=== PATIENT | male | born 1970 | race African-American/Black ===

== ENCOUNTER 2016-10-13 06:13 | Inpatient (IN) | payer MEDICAID ==
[~2016-10-13] VITALS: Ht 182.9 cm; Wt 117.7 kg
[~2016-10-13 06:13] MED LIST: ALPR0.5T PO; ALPR0.5T7 PO; ASPI-498 OR; ATE50T PO; DESV1TAB15 PO; GABA800T97 PO; GEMF600T3 PO; HAL1T PO; HALO0.5T9 PO; HYDR50CA2 PO; HYDR50TA69 PO; INSLANTI SC; ISOS20TA49 PO; ISOSPOW2 PO; LISI40TA PO
[2016-10-13] MEDS ORDERED: SODIUM CHLORIDE 0.9% 250 ML IV ONE (07:24)
[2016-10-13 07:25] LABS: Basophils # (auto) 0.1 uL; Basophils % (auto) 1.6 % (0.0-2.0); Eosinophils # (auto) 0.1 uL; Eosinophils % (auto) 1.1 % (0.0-7.0); Hematocrit 50.5 % (41.0-53.0); Hemoglobin 16.2 g/dL (13.5-17.5); Lymphocytes # (auto) 1.8 uL; Lymphocytes % (auto) 18.8 % (10.0-50.0); Mean Corpuscular Hemoglobin 28.7 pg (28.0-32.0); Mean Corpuscular Hgb Conc. 32.1 g/dL (32.0-36.0); Mean Corpuscular Volume 89.4 fL (80.0-100.0); Mean Platelet Volume 7.9 fL (7.4-10.4); Monocytes # (auto) 0.4 uL; Monocytes % (auto) 4.8 % (0.0-12.0); Neutrophils # (auto) 6.9 uL; Neutrophils % (auto) 73.7 % (37.0-80.0); Platelet Count (auto) 284 10^3/uL (140-450); Red Cell Distribution Width 13.5 % (11.6-16.0); White Blood Cell 9.3 10^3/uL (4.4-10.8)
[2016-10-13] MEDS ORDERED: LABETALOL HCL 5 MG/ML 4ML SYRINGE IV ONE (07:30)
[2016-10-13] MEDS ORDERED: LORazepam 2MG/ML-1ML VIAL IV ONE (07:30)
[2016-10-13 07:45] LABS: Albumin 3.7 g/dL (3.4-5.0); BUN/Creatinine Ratio 19.7; Bilirubin, Total 0.5 mg/dL (0.2-1.0); Calcium 9.3 mg/dL (8.5-10.1); Potassium 3.8 mmol/L (3.5-5.1); Total Protein 8.1 g/dL (6.4-8.2)
[2016-10-13] MEDS ORDERED: InsuLIN REG 1unit/0.01ml Soln (100units/ml) IV ONE (08:15)
[2016-10-13] MEDS ORDERED: SODIUM CHLORIDE 0.9% 1,000 ML IV ONE (08:15)
[2016-10-13] MEDS ORDERED: ONDANSETRON HCL 4 MG/2 ML VIAL IV ONE (08:30)
[2016-10-13] MEDS ORDERED: MORPHINE SULFATE 4 MG/ML SYRG IV ONE (08:30)
[2016-10-13 09:35] LABS: Urine Bilirubin Negative (Negative); Urine Color Yellow (Yellow); Urine Nitrite Negative (Negative); Urine RBC 3 /hpf (0 - 3); Urine Urobilinogen Normal (Negative); Urine pH 6.5 (5.0-8.0)
[2016-10-13] MEDS ORDERED: hydrALAZINE HCL 20 MG/ML VL IV ONE (09:45)
[2016-10-13 09:47] LABS: Urine Blood 1+ /uL (Negative); Urine Glucose 4+ mg/dL (Normal); Urine Ketone 1+ (Negative)
[2016-10-13] MEDS ORDERED: FAMOTIDINE (10MG/ML) 2ML VL IV SCH (10:15)
[2016-10-13] MEDS ORDERED: ACETAMINOPHEN 500 MG TAB PO PRN (10:15)
[2016-10-13] MEDS ORDERED: ALPRAZolam 0.5 MG TAB PO PRN (10:15)
[2016-10-13] MEDS ORDERED: MORPHINE SULF INJ 2 MG/ML SYRINGE 1ML IV PRN (10:15)
[2016-10-13] MEDS ORDERED: TEMAZEPAM 15 MG CAP PO PRN (10:15)
[2016-10-13] MEDS ORDERED: LORazepam 0.5 MG TAB PO PRN (10:15)
[2016-10-13] MEDS ORDERED: DEXTROSE (50%) 50ML SYRG IV PRN (10:15)
[2016-10-13] MEDS ORDERED: NITROGLYCERIN 0.4 MG SL TAB SL PRN (10:15)
[2016-10-13] MEDS: SODIUM CHLORIDE 0.9% 1,000 ML IV SCH ×2 (11:16→20:21)
[2016-10-13] MEDS: LISINOPRIL 20 MG TAB PO SCH (11:17)
[2016-10-13] MEDS: ASPirin-EC 81 mg tab PO SCH (11:17)
[2016-10-13] MEDS: GABAPENTIN 400 MG CAP PO SCH ×2 (11:17→22:01)
[2016-10-13] MEDS: ISOSORBIDE MONONITRATE 60 MG TAB PO SCH (11:18)
[2016-10-13] MEDS: GEMFIBROZIL 600 MG TAB PO SCH ×2 (11:18→22:00)
[2016-10-13] MEDS: ATENOLOL 50 MG TAB PO SCH ×2 (11:18→22:02)
[2016-10-13] MEDS: ACCU-CHEK COMFORT CURVE STRIP VI SCH ×3 (11:19→20:19)
[2016-10-13] MEDS: InsuLIN REG 1unit/0.01ml Soln (100units/ml) SC SCH ×3 (11:29→20:20)
[2016-10-13] MEDS ORDERED: HYDROXYZINE PAMOATE PO SCH (14:00)
[2016-10-13] MEDS: hydrOXYzine PAMOATE 25 MG CAP PO SCH ×2 (14:42→22:01)
[2016-10-13] MEDS: PROMETHAZINE HCL 25 MG/ML 1ML IV PRN (14:57)
[2016-10-13] MEDS: MORPHINE SULF INJ 2 MG/ML SYRINGE 1ML IV PRN ×2 (14:58→19:29)
[2016-10-13 16:55] VITALS: BP 103/67
[2016-10-13 20:00] VITALS: BP 123/71
[2016-10-13 21:38] VITALS: BP 123/71
[2016-10-13] MEDS: INSULIN DETEMIR(LEVEMIR) 1unit/0.01ml Soln (100units/ml) SC SCH (22:00)
[2016-10-13] MEDS ORDERED: HALOPERIDOL 0.5 MG PO SCH (22:00)
[2016-10-13] MEDS ORDERED: PATIENTS OWN MEDICATION (Gabapentin 800 MG) PO SCH ×2 (22:00)
[2016-10-13] MEDS ORDERED: INSULIN GLARGINE SC SCH (22:00)
[2016-10-13] MEDS: HALOPERIDOL 1 MG TAB PO SCH (22:02)
[2016-10-14] VITALS (7 sets, daily range): BP systolic 134–150; BP diastolic 70–79
[2016-10-14] MEDS: InsuLIN REG 1unit/0.01ml Soln (100units/ml) SC SCH ×6 (04:00→20:03)
[2016-10-14] MEDS: MORPHINE SULF INJ 2 MG/ML SYRINGE 1ML IV PRN ×2 (04:20→09:03)
[2016-10-14] MEDS: ACCU-CHEK COMFORT CURVE STRIP VI SCH ×7 (04:24→23:49)
[2016-10-14] MEDS: hydrOXYzine PAMOATE 25 MG CAP PO SCH ×3 (06:00→22:07)
[2016-10-14] MEDS: SODIUM CHLORIDE 0.9% 1,000 ML IV SCH (06:02)
[2016-10-14 06:59] LABS: Cholesterol 174 mg/dL (<200); HDL Cholesterol 31 mg/dL (40-59); LDL Cholesterol 121 mg/dL (<100); Triglycerides 189 mg/dL (<150)
[2016-10-14 07:32] LABS: Albumin 2.9 g/dL (3.4-5.0); Bilirubin, Total 0.5 mg/dL (0.2-1.0); Calcium 8.2 mg/dL (8.5-10.1); Potassium 3.3 mmol/L (3.5-5.1); Total Protein 6.5 g/dL (6.4-8.2)
[2016-10-14] MEDS: PROMETHAZINE HCL 25 MG/ML 1ML IV PRN (09:03)
[2016-10-14] MEDS: ASPirin-EC 81 mg tab PO SCH (09:41)
[2016-10-14] MEDS: GABAPENTIN 400 MG CAP PO SCH ×2 (09:42→22:04)
[2016-10-14] MEDS: GEMFIBROZIL 600 MG TAB PO SCH ×2 (09:43→22:05)
[2016-10-14] MEDS: ISOSORBIDE MONONITRATE 60 MG TAB PO SCH (09:43)
[2016-10-14] MEDS: PANTOPRAZOLE 40 MG TAB PO SCH (09:44)
[2016-10-14] MEDS: ATENOLOL 50 MG TAB PO SCH ×2 (09:44→22:05)
[2016-10-14] MEDS: LISINOPRIL 20 MG TAB PO SCH (09:45)
[2016-10-14] MEDS ORDERED: ISOSORBIDE 30 MG PO SCH (10:00)
[2016-10-14] MEDS: DESVENLAFAXINE 50 MG PO SCH (10:00)
[2016-10-14] MEDS ORDERED: PATIENTS OWN MEDICATION (Lisinopril 40 MG) PO SCH ×2 (10:00)
[2016-10-14] MEDS ORDERED: POTASSIUM CHL 20 Meq TABLET PO ONE (13:15)
[2016-10-14] MEDS: HYDROcodone-ACET 5/325MG TAB PO PRN (14:42)
[2016-10-14] MEDS: HALOPERIDOL 1 MG TAB PO SCH (22:04)
[2016-10-14] MEDS: INSULIN DETEMIR(LEVEMIR) 1unit/0.01ml Soln (100units/ml) SC SCH (22:13)
[2016-10-15] MEDS: InsuLIN REG 1unit/0.01ml Soln (100units/ml) SC SCH ×4 (00:12→11:59)
[2016-10-15] MEDS: ACCU-CHEK COMFORT CURVE STRIP VI SCH ×3 (03:39→11:59)
[2016-10-15 05:00] VITALS: BP 168/91
[2016-10-15] MEDS: PROMETHAZINE HCL 25 MG/ML 1ML IV PRN (05:12)
[2016-10-15] MEDS: HYDROcodone-ACET 5/325MG TAB PO PRN (05:13)
[2016-10-15] MEDS: hydrOXYzine PAMOATE 25 MG CAP PO SCH (06:03)
[2016-10-15 06:24] LABS: BUN/Creatinine Ratio 15.8; Calcium 8.2 mg/dL (8.5-10.1); Potassium 3.8 mmol/L (3.5-5.1)
[2016-10-15 08:00] VITALS: BP 131/72
[2016-10-15 09:00] VITALS: BP 131/72
[2016-10-15] MEDS: ASPirin-EC 81 mg tab PO SCH (09:46)
[2016-10-15] MEDS: LISINOPRIL 20 MG TAB PO SCH (09:46)
[2016-10-15] MEDS: ATENOLOL 50 MG TAB PO SCH (09:47)
[2016-10-15] MEDS: PANTOPRAZOLE 40 MG TAB PO SCH (09:48)
[2016-10-15] MEDS: ISOSORBIDE MONONITRATE 60 MG TAB PO SCH (09:50)
[2016-10-15] MEDS: GABAPENTIN 400 MG CAP PO SCH (09:51)
[2016-10-15] MEDS: GEMFIBROZIL 600 MG TAB PO SCH (09:53)
[2016-10-15] MEDS: DESVENLAFAXINE 50 MG PO SCH (09:54)
[2016-10-15] MEDS ORDERED: SODIUM CHLORIDE 0.9% 1,000 ML IV SCH (10:02)
[2016-10-15] MEDS ORDERED: PANT40T PO (11:15)
[2016-10-15 12:23] VITALS: BP 131/72
[2016-10-15 12:50] VITALS: BP 131/72
[2016-10-15 12:53] VITALS: BP 151/83
== END 2016-10-15 12:50 | disposition home or self-care (01) | DRG 723 ==
LOC: ER 06:15 → TELE 06:16 → TELE-E-ADS 13:38 → TELE-WESTW 15:58
PROVIDERS: ADMIT Internal Medicine; ATTEND Internal Medicine
DX: B34.9 Viral infection, unspecified (principal); N17.0 Acute kidney failure with tubular necrosis; E87.6 Hypokalemia; I10 Essential (primary) hypertension; E78.5 Hyperlipidemia, unspecified; E11.65 Type 2 diabetes mellitus with hyperglycemia; F41.9 Anxiety disorder, unspecified; K57.90 Diverticulosis of intestine, part unspecified, without perforation or abscess without bleeding; Z83.3 Family history of diabetes mellitus; Z88.8 Allergy status to other drugs, medicaments and biological substances; Z79.899 Other long term (current) drug therapy; Z79.82 Long term (current) use of aspirin; Z79.4 Long term (current) use of insulin
CPT/HCPCS: 36415; 71010; 74176; 80048; 80053; 80061; 81001; 82150; 82962; 83036; 83690; 83735; 85025; 93005; 96361; 96374; 96375; J1815; J2405; J3490

== ENCOUNTER 2016-12-31 09:13 | Observation (INO) | payer MEDICAID ==
[~2016-12-31] VITALS: Ht 182.9 cm; Wt 113.4 kg
[~2016-12-31 09:13] MED LIST changes: -ALPR0.5T PO; -HAL1T PO; -HYDR50TA69 PO; -ISOS20TA49 PO; +PANT40T PO
[2016-12-31] MEDS ORDERED: ONDANSETRON HCL 4 MG/2 ML VIAL ONE (09:31)
[2016-12-31 09:37] LABS: Basophils # (auto) 0 uL; Basophils % (auto) 0.4 % (0.0-2.0); Eosinophils # (auto) 0.2 uL; Eosinophils % (auto) 1.8 % (0.0-7.0); Hematocrit 48.2 % (41.0-53.0); Hemoglobin 16.2 g/dL (13.5-17.5); Lymphocytes # (auto) 2.1 uL; Lymphocytes % (auto) 22.2 % (10.0-50.0); Mean Corpuscular Hemoglobin 29.8 pg (28.0-32.0); Mean Corpuscular Hgb Conc. 33.6 g/dL (32.0-36.0); Mean Corpuscular Volume 88.8 fL (80.0-100.0); Mean Platelet Volume 7.7 fL (7.4-10.4); Monocytes # (auto) 0.5 uL; Monocytes % (auto) 5.5 % (0.0-12.0); Neutrophils # (auto) 6.6 uL; Neutrophils % (auto) 70.1 % (37.0-80.0); Platelet Count (auto) 278 10^3/uL (140-450); Red Cell Distribution Width 14.3 % (11.6-16.0); White Blood Cell 9.5 10^3/uL (4.4-10.8)
[2016-12-31] MEDS ORDERED: ONDANSETRON HCL 4 MG/2 ML VIAL IV ONE (10:00)
[2016-12-31 10:10] LABS: Albumin 4.1 g/dL (3.4-5.0); BUN/Creatinine Ratio 15.2; Calcium 9.2 mg/dL (8.5-10.1); Potassium 3.5 mmol/L (3.5-5.1)
[2016-12-31 10:12] LABS: Bilirubin, Total 0.6 mg/dL (0.2-1.0); Total Protein 8.2 g/dL (6.4-8.2)
[2016-12-31] MEDS ORDERED: SODIUM CHLORIDE 0.9% 1,000 ML IVB ONE ×2 (10:12→12:17)
[2016-12-31 10:14] LABS: Urine Bilirubin Negative (Negative); Urine Blood 1+ /uL (Negative); Urine Color Yellow (Yellow); Urine Glucose 4+ mg/dL (Normal); Urine Ketone 1+ (Negative); Urine Nitrite Negative (Negative); Urine RBC 8 /hpf (0 - 3); Urine Urobilinogen Normal (Negative)
[2016-12-31] MEDS ORDERED: NALBUPHINE HCL 10 MG/1ml INJECTION IV ONE (10:15)
[2016-12-31] MEDS ORDERED: LABETALOL HCL 5 MG/ML 4ML SYRINGE IV ONE (10:45)
[2016-12-31 11:10] LABS: Magnesium 2.3 mg/dL (1.6-2.6)
[2016-12-31] MEDS ORDERED: InsuLIN REG 1unit/0.01ml Soln (100units/ml) IV ONE ×2 (11:30→12:30)
[2016-12-31 14:50] VITALS: BP 160/91
[2016-12-31] MEDS ORDERED: ACETAMINOPHEN 500 MG TAB PO ONE (15:00)
== END 2016-12-31 15:17 | disposition home or self-care (01) | DRG 249 ==
LOC: ER 09:13 → OVERFLOW 10:14 → ER 15:17
PROVIDERS: ADMIT Emergency Medicine; ATTEND Emergency Medicine
DX: R11.2 Nausea with vomiting, unspecified (principal); E11.65 Type 2 diabetes mellitus with hyperglycemia; I10 Essential (primary) hypertension; K21.9 Gastro-esophageal reflux disease without esophagitis; F32.9 Major depressive disorder, single episode, unspecified; F41.9 Anxiety disorder, unspecified
CPT/HCPCS: 36415; 71020; 80053; 81001; 82962; 83690; 83735; 84443; 85025; 93005; 96374; 96375; 96376; 99285; G0378; J1815; J2300; J2405; J3490; J7030

== ENCOUNTER 2017-01-01 07:07 | Observation (INO) | payer MEDICAID ==
[~2017-01-01] VITALS: Ht 182.9 cm; Wt 113.4 kg
[2017-01-01] MEDS ORDERED: SODIUM CHLORIDE 0.9% 1,000 ML IV ONE ×3 (07:51→10:07)
[2017-01-01] MEDS ORDERED: ONDANSETRON HCL 4 MG/2 ML VIAL IV ONE ×2 (08:00→11:30)
[2017-01-01] MEDS ORDERED: NALBUPHINE HCL 10 MG/1ml INJECTION IV ONE ×2 (08:00→11:30)
[2017-01-01 08:03] LABS: Basophils # (auto) 0.1 uL; Basophils % (auto) 0.7 % (0.0-2.0); Eosinophils # (auto) 0.1 uL; Eosinophils % (auto) 1.2 % (0.0-7.0); Hemoglobin 14.9 g/dL (13.5-17.5); Lymphocytes % (auto) 18.4 % (10.0-50.0); Mean Corpuscular Hemoglobin 30.4 pg (28.0-32.0); Mean Corpuscular Hgb Conc. 33.9 g/dL (32.0-36.0); Mean Corpuscular Volume 89.7 fL (80.0-100.0); Mean Platelet Volume 7.6 fL (7.4-10.4); Monocytes # (auto) 0.5 uL; Monocytes % (auto) 4.2 % (0.0-12.0); Neutrophils # (auto) 8.4 uL; Neutrophils % (auto) 75.5 % (37.0-80.0); Platelet Count (auto) 289 10^3/uL (140-450); Red Cell Distribution Width 14.1 % (11.6-16.0); White Blood Cell 11.1 10^3/uL (4.4-10.8)
[2017-01-01 08:29] LABS: Urine Bilirubin Negative (Negative); Urine Blood TRACE /uL (Negative); Urine Nitrite Negative (Negative); Urine RBC 1 /hpf (0 - 3); Urine Urobilinogen Normal (Negative); Urine pH 7.5 (5.0-8.0)
[2017-01-01 08:33] LABS: Urine Glucose 4+ mg/dL (Normal); Urine Ketone 1+ (Negative)
[2017-01-01 08:34] LABS: Albumin 3.7 g/dL (3.4-5.0); Alkaline Phosphatase 98 U/L (45-117); Anion Gap 10 (5-15); Aspartate Aminotransferase 42 U/L (15-37); BUN/Creatinine Ratio 11.9; Bilirubin, Total 0.9 mg/dL (0.2-1.0); Blood Urea Nitrogen 13 mg/dL (7-18); Calcium 8.6 mg/dL (8.5-10.1); Carbon Dioxide 29 mmol/L (21-32); Chloride 97 mmol/L (98-107); GFR African American 95 mL/min; GFR Non-African American 78 mL/min; Glucose 304 mg/dL (74-106); Magnesium 1.9 mg/dL (1.6-2.6); Sodium 136 mmol/L (136-145); Total Protein 7.9 g/dL (6.4-8.2)
[2017-01-01 08:34] LABS: Urine Color Straw (Yellow)
[2017-01-01] MEDS ORDERED: InsuLIN REG 1unit/0.01ml Soln (100units/ml) IV ONE (09:00)
[2017-01-01] MEDS ORDERED: LABETALOL HCL 5 MG/ML 4ML SYRINGE IV ONE ×2 (09:15→11:30)
[2017-01-01] MEDS ORDERED: InsuLIN REG 1unit/0.01ml Soln (100units/ml) SC ONE (11:30)
[2017-01-01 12:00] VITALS: BP 161/94
== END 2017-01-01 12:50 | disposition home or self-care (01) | DRG 251 ==
LOC: ER 07:08 → OVERFLOW 07:59
PROVIDERS: ADMIT Emergency Medicine; ATTEND Emergency Medicine
DX: R10.13 Epigastric pain (principal); I10 Essential (primary) hypertension; R11.2 Nausea with vomiting, unspecified; E11.9 Type 2 diabetes mellitus without complications; K21.9 Gastro-esophageal reflux disease without esophagitis; F32.9 Major depressive disorder, single episode, unspecified; F41.9 Anxiety disorder, unspecified; E78.5 Hyperlipidemia, unspecified
CPT/HCPCS: 36415; 71010; 80053; 81001; 82962; 83690; 83735; 84484; 85025; 96361; 96372; 96374; 96375; 96376; 99285; G0378; J1815; J2300; J2405; J3490; J7030

== ENCOUNTER 2017-02-16 07:20 | Inpatient (IN) | payer MEDICAID ==
[~2017-02-16] VITALS: Ht 182.9 cm; Wt 113.1 kg
[2017-02-16] MEDS ORDERED: SODIUM CHLORIDE 0.9% 1,000 ML IVB ONE (08:04)
[2017-02-16] MEDS ORDERED: PANTOPRAZOLE SODIUM 40 MG/10 ML VIAL IV STA (08:04)
[2017-02-16] MEDS ORDERED: PROCHLORPERAZINE EDISYLATE 5 MG/ML 2ML VIAL IV ONE (08:15)
[2017-02-16] MEDS ORDERED: HYDROmorphone HCL 2 MG/ML VL IV ONE (08:15)
[2017-02-16 08:28] LABS: Basophils # (auto) 0 uL; CONDITION Y; Eosinophils # (auto) 0.1 uL; Eosinophils % (auto) 0.7 % (0.0-7.0); Hematocrit 49.4 % (41.0-53.0); Hemoglobin 16.9 g/dL (13.5-17.5); Lymphocytes # (auto) 1.1 uL; Lymphocytes % (auto) 10.1 % (10.0-50.0); Mean Corpuscular Hgb Conc. 34.3 g/dL (32.0-36.0); Mean Corpuscular Volume 90.5 fL (80.0-100.0); Mean Platelet Volume 7.5 fL (7.4-10.4); Monocytes # (auto) 0.1 uL; Monocytes % (auto) 0.8 % (0.0-12.0); Neutrophils # (auto) 9.3 uL; Neutrophils % (auto) 88.4 % (37.0-80.0); Platelet Count (auto) 299 10^3/uL (140-450); Red Cell Distribution Width 14.1 % (11.6-16.0); White Blood Cell 10.5 10^3/uL (4.4-10.8)
[2017-02-16 08:53] LABS: Albumin 4.2 g/dL (3.4-5.0); BUN/Creatinine Ratio 12.8; Bilirubin, Total 0.7 mg/dL (0.2-1.0); Calcium 9.4 mg/dL (8.5-10.1); Magnesium 2.3 mg/dL (1.6-2.6); Potassium 4.2 mmol/L (3.5-5.1); Total Protein 8.6 g/dL (6.4-8.2)
[2017-02-16] MEDS ORDERED: cloNIDine HCL 0.1 MG TAB PO ONE (09:45)
[2017-02-16] MEDS ORDERED: PATIENTS OWN MEDICATION (Lisinopril 40 MG) PO SCH ×2 (10:15)
[2017-02-16] MEDS ORDERED: DEXTROSE (50%) 50ML SYRG IV PRN (10:15)
[2017-02-16] MEDS ORDERED: HYDROcodone-ACET 5/325MG TAB PO PRN (10:15)
[2017-02-16] MEDS ORDERED: TEMAZEPAM 15 MG CAP PO PRN (10:15)
[2017-02-16] MEDS ORDERED: NITROGLYCERIN 0.4 MG SL TAB SL PRN (10:15)
[2017-02-16] MEDS ORDERED: MORPHINE SULF INJ 2 MG/ML SYRINGE 1ML IV PRN (10:15)
[2017-02-16] MEDS ORDERED: LABETALOL HCL 5 MG/ML 4ML SYRINGE IV PRN ×3 (10:15)
[2017-02-16] MEDS ORDERED: PROMETHAZINE HCL 25 MG/ML 1ML IV PRN (10:15)
[2017-02-16] MEDS ORDERED: ACETAMINOPHEN 500 MG TAB PO PRN (10:15)
[2017-02-16 10:20] LABS: Urine Bilirubin Negative (Negative); Urine Blood TRACE /uL (Negative); Urine Color Yellow (Yellow); Urine Nitrite Negative (Negative); Urine RBC 3 /hpf (0 - 3); Urine Urobilinogen Normal (Negative)
[2017-02-16 10:21] LABS: Urine Glucose 4+ mg/dL (Normal); Urine Ketone 3+ (Negative)
[2017-02-16] MEDS ORDERED: ALPRAZolam 0.5 MG TAB PO ONE (10:30)
[2017-02-16] MEDS ORDERED: GEMFIBROZIL 600 MG TAB PO ONE (10:30)
[2017-02-16] MEDS ORDERED: GABAPENTIN 400 MG CAP PO ONE (10:45)
[2017-02-16] MEDS ORDERED: hydrALAZINE HCL 25 MG TAB PO ONE (10:45)
[2017-02-16] MEDS ORDERED: ISOSORBIDE MONONITRATE 60 MG TAB PO ONE (10:45)
[2017-02-16] MEDS: ATENOLOL 50 MG TAB PO SCH (11:03)
[2017-02-16] MEDS: SODIUM CHLORIDE 0.9% 1,000 ML IV SCH ×2 (11:03→20:25)
[2017-02-16] MEDS: ACCU-CHEK COMFORT CURVE STRIP VI SCH ×3 (11:53→20:25)
[2017-02-16] MEDS: InsuLIN REG 1unit/0.01ml Soln (100units/ml) SC SCH ×3 (11:55→20:00)
[2017-02-16] MEDS ORDERED: HYDROXYZINE PAMOATE PO SCH (14:00)
[2017-02-16] MEDS: hydrALAZINE HCL 25 MG TAB PO SCH ×2 (14:24→21:43)
[2017-02-16] MEDS: MORPHINE SULFATE 4 MG/ML SYRG IV PRN ×2 (15:42→20:24)
[2017-02-16] MEDS ORDERED: INSUINJ18 SC (18:00)
[2017-02-16 18:01] VITALS: BP 97/60
[2017-02-16 20:00] VITALS: BP 93/56
[2017-02-16] MEDS: GEMFIBROZIL 600 MG TAB PO SCH (21:41)
[2017-02-16] MEDS: GABAPENTIN 400 MG CAP PO SCH (21:41)
[2017-02-16] MEDS: ALPRAZolam 0.5 MG TAB PO SCH (21:42)
[2017-02-16] MEDS ORDERED: HALOPERIDOL 1 MG TAB PO SCH (22:00)
[2017-02-16] MEDS ORDERED: HALOPERIDOL 0.5 MG PO SCH (22:00)
[2017-02-16] MEDS ORDERED: PATIENTS OWN MEDICATION (Gabapentin 800 MG) PO SCH ×2 (22:00)
[2017-02-16 22:03] VITALS: BP 93/56
[2017-02-17] VITALS (7 sets, daily range): BP systolic 101–126; BP diastolic 53–72
[2017-02-17] MEDS: ACCU-CHEK COMFORT CURVE STRIP VI SCH ×4 (00:05→12:07)
[2017-02-17] MEDS: MORPHINE SULFATE 4 MG/ML SYRG IV PRN ×3 (00:57→11:57)
[2017-02-17] MEDS: InsuLIN REG 1unit/0.01ml Soln (100units/ml) SC SCH ×4 (03:54→12:00)
[2017-02-17] MEDS: hydrALAZINE HCL 25 MG TAB PO SCH (05:27)
[2017-02-17] MEDS: SODIUM CHLORIDE 0.9% 1,000 ML IV SCH ×2 (05:28→12:22)
[2017-02-17 06:58] LABS: Albumin 3.1 g/dL (3.4-5.0); Calcium 8.1 mg/dL (8.5-10.1); Potassium 3.7 mmol/L (3.5-5.1)
[2017-02-17 07:02] LABS: Bilirubin, Total 0.6 mg/dL (0.2-1.0); Total Protein 6.7 g/dL (6.4-8.2)
[2017-02-17 07:16] LABS: Cholesterol 188 mg/dL (< 200); HDL Cholesterol 31 mg/dL (40-59); LDL Cholesterol 129 mg/dL (< 100); Triglycerides 177 mg/dL (< 150)
[2017-02-17] MEDS ORDERED: DESVENLAFAXINE 50 MG PO SCH (10:00)
[2017-02-17] MEDS ORDERED: ISOSORBIDE MONONITRATE 60 MG TAB PO SCH (10:00)
[2017-02-17] MEDS ORDERED: LISINOPRIL 20 MG TAB PO SCH (10:00)
[2017-02-17] MEDS ORDERED: ISOSORBIDE 30 MG PO SCH (10:00)
[2017-02-17] MEDS ORDERED: PANTOPRAZOLE 40 MG TAB PO SCH (10:00)
[2017-02-17] MEDS: ALPRAZolam 0.5 MG TAB PO SCH (12:04)
[2017-02-17] MEDS: GABAPENTIN 400 MG CAP PO SCH (12:04)
[2017-02-17] MEDS: ATENOLOL 50 MG TAB PO SCH (13:19)
[2017-02-17] MEDS: GEMFIBROZIL 600 MG TAB PO SCH (13:20)
[2017-02-17] MEDS ORDERED: ATE50T PO (16:21)
[2017-02-17] MEDS ORDERED: HYDR-2652 PO (16:21)
== END 2017-02-17 18:35 | disposition home or self-care (01) | DRG 251 ==
LOC: ER 07:20 → TELE 07:21 → TELE-CENTR 17:44
PROVIDERS: ADMIT Internal Medicine; ATTEND Internal Medicine
DX: R10.9 Unspecified abdominal pain (principal); E11.42 Type 2 diabetes mellitus with diabetic polyneuropathy; K76.0 Fatty (change of) liver, not elsewhere classified; F41.9 Anxiety disorder, unspecified; I10 Essential (primary) hypertension; F32.9 Major depressive disorder, single episode, unspecified; K21.9 Gastro-esophageal reflux disease without esophagitis; E78.5 Hyperlipidemia, unspecified; K57.90 Diverticulosis of intestine, part unspecified, without perforation or abscess without bleeding; I16.0 Hypertensive urgency; E11.65 Type 2 diabetes mellitus with hyperglycemia; E66.3 Overweight; E66.9 Obesity, unspecified; K31.84 Gastroparesis; Z82.49 Family history of ischemic heart disease and other diseases of the circulatory system; Z83.3 Family history of diabetes mellitus; Z82.3 Family history of stroke; Z88.8 Allergy status to other drugs, medicaments and biological substances; Z68.33 Body mass index [BMI] 33.0-33.9, adult
CPT/HCPCS: 36415; 74176; 80053; 80061; 81001; 82150; 82962; 83036; 83690; 83735; 85025; 85652; 86141; 87081; 94761; 96361; 96374; 96375; C9113; J1815

== ENCOUNTER 2017-09-17 11:20 | Inpatient (IN) | payer MEDICAID ==
[~2017-09-17] VITALS: Ht 182.9 cm; Wt 111.6 kg
[~2017-09-17 11:20] MED LIST changes: -ASPI-498 OR; +HYDR50TA15 PO; +INSUINJ18 SC
[2017-09-17] MEDS ORDERED: SODIUM CHLORIDE 0.9% 1,000 ML IV ONE ×2 (11:51)
[2017-09-17] MEDS ORDERED: InsuLIN REG 1unit/0.01ml Soln (100units/ml) IV ONE (12:00)
[2017-09-17 12:16] LABS: Basophils # (auto) 0.1 uL; Eosinophils # (auto) 0 uL; Lymphocytes # (auto) 2.7 uL; Lymphocytes % (auto) 20.6 % (10.0-50.0); Monocytes # (auto) 0.8 uL; Nucleated Red Blood Cells % 0.1 %; White Blood Cell 13.3 10^3/uL (4.4-10.8)
[2017-09-17 12:17] LABS: Eosinophils % (auto) 0.1 % (0.0-7.0); Hematocrit 53.3 % (41.0-53.0); Hemoglobin 17.9 g/dL (13.5-17.5); Mean Corpuscular Hemoglobin 30.3 pg (28.0-32.0); Mean Corpuscular Hgb Conc. 33.6 g/dL (32.0-36.0); Mean Corpuscular Volume 90.2 fL (80.0-100.0); Neutrophils # (auto) 9.7 uL; Neutrophils % (auto) 72.3 % (37.0-80.0); Platelet Count (auto) 313 10^3/uL (140-450); Red Blood Cells 5.91 10^6/uL (4.5-5.90); Red Cell Distribution Width 13.2 % (11.8-14.3)
[2017-09-17 12:29] LABS: INR 0.96 (0.9-1.15); Partial Thromboplastin Time 27.9 sec (22.64-33.71); Prothrombin Time 10.5 sec (9.37-12.3)
[2017-09-17] MEDS ORDERED: MORPHINE SULFATE 10 MG/ML INJ 1ML SDV IV ONE (12:30)
[2017-09-17] MEDS ORDERED: ONDANSETRON HCL 4 MG/2 ML VIAL IV ONE (12:30)
[2017-09-17 12:32] LABS: Alanine Aminotransferase 45 U/L (16-61); Alkaline Phosphatase 147 U/L (45-117); Anion Gap 24 (5-15); Aspartate Aminotransferase 20 U/L (15-37); BUN/Creatinine Ratio 16.3; Bilirubin, Total 1.2 mg/dL (0.2-1.0); Blood Urea Nitrogen 24 mg/dL (7-18); Calcium 9.7 mg/dL (8.5-10.1); Carbon Dioxide 20 mmol/L (21-32); Chloride 87 mmol/L (98-107); GFR African American 67 mL/min; GFR Non-African American 55 mL/min; Glucose 365 mg/dL (74-106); Lipase 105 U/L (73-393); Potassium 3.6 mmol/L (3.5-5.1); Sodium 131 mmol/L (136-145); Total Protein 9.6 g/dL (6.4-8.2)
[2017-09-17] MEDS ORDERED: DEXTROSE (50%) 50ML SYRG IV PRN ×2 (13:00→15:30)
[2017-09-17] MEDS ORDERED: InsuLIN R (HUMAN) 100 UNITS in SODIUM CHL 0.9% 99 ML IV SCH ×2 (13:30→15:22)
[2017-09-17] MEDS: SODIUM CHLORIDE 0.9% 1,000 ML IV SCH ×3 (14:06→21:19)
[2017-09-17 14:13] LABS: BUN/Creatinine Ratio 18.2; Calcium 8.7 mg/dL (8.5-10.1); Magnesium 2.4 mg/dL (1.6-2.6); Phosphorus 1.6 mg/dL (2.5-4.90)
[2017-09-17] MEDS: ACCU-CHEK COMFORT CURVE STRIP VI SCH ×12 (14:24→22:43)
[2017-09-17] MEDS ORDERED: MORPHINE SULFATE 10 MG/ML INJ 1ML SDV IV PRN (15:30)
[2017-09-17] MEDS ORDERED: HYDROcodone-ACET 5/325MG TAB PO PRN (15:30)
[2017-09-17] MEDS ORDERED: NITROGLYCERIN 0.4 MG SL TAB SL PRN (15:30)
[2017-09-17] MEDS ORDERED: PANTOPRAZOLE 40 MG TAB PO SCH (15:49)
[2017-09-17] MEDS ORDERED: LISINOPRIL 20 MG TAB PO ONE (16:00)
[2017-09-17] MEDS ORDERED: PANTOPRAZOLE 40 MG/10 ML VIAL IV ONE (16:00)
[2017-09-17] MEDS: POTASSIUM CHL 20MEQ/100ML 100 ML IV SCH ×2 (16:21→18:41)
[2017-09-17] MEDS ORDERED: POTASSIUM PHOSPHATE 22 MEQ in SODIUM CHL 0.9% 100 ML IV ONE (16:30)
[2017-09-17] MEDS: ONDANSETRON HCL 4 MG/2 ML VIAL IV PRN ×2 (16:32→19:55)
[2017-09-17] MEDS: MORPHINE SULFATE 10 MG/ML INJ 1ML SDV IV PRN ×2 (16:32→19:55)
[2017-09-17] MEDS ORDERED: SODIUM CHLORIDE 0.9% 1,000 ML IV SCH (16:59)
[2017-09-17 19:08] LABS: Urine Bacteria NONE SEEN /hpf (None Seen); Urine Blood TRACE /uL (Negative); Urine Specific Gravity 1.028 (1.001-1.035); Urine WBC 1 /hpf (0 - 3)
[2017-09-17 19:48] LABS: BUN/Creatinine Ratio 18.3; Calcium 8.2 mg/dL (8.5-10.1); Potassium 3.7 mmol/L (3.5-5.1)
[2017-09-17] MEDS ORDERED: PATIENTS OWN MEDICATION (Gabapentin 800 MG) PO SCH (22:00)
[2017-09-17] MEDS: GABAPENTIN 400 MG CAP PO SCH (22:00)
[2017-09-17] MEDS: ALPRAZolam 0.5 MG TAB PO SCH (22:00)
[2017-09-17] MEDS: SOD CHL 0.9%/ KCL 20MEQ 1,000 ML IV SCH ×2 (22:02→22:57)
[2017-09-18] VITALS (7 sets, daily range): BP systolic 139–181; BP diastolic 82–98
[2017-09-18] MEDS ORDERED: DEXTROSE (50%) 50ML SYRG IV PRN (00:15)
[2017-09-18 01:25] LABS: Calcium 8.5 mg/dL (8.5-10.1); Potassium 3.4 mmol/L (3.5-5.1)
[2017-09-18] MEDS: SODIUM CHLORIDE 0.9% 1,000 ML IV SCH (01:39)
[2017-09-18] MEDS: MORPHINE SULFATE 10 MG/ML INJ 1ML SDV IV PRN ×3 (02:29→20:28)
[2017-09-18] MEDS: ONDANSETRON HCL 4 MG/2 ML VIAL IV PRN ×2 (02:30→09:02)
[2017-09-18] MEDS: ACCU-CHEK COMFORT CURVE STRIP VI SCH ×5 (03:41→20:00)
[2017-09-18] MEDS: InsuLIN REG 1unit/0.01ml Soln (100units/ml) SC SCH ×5 (03:41→23:00)
[2017-09-18] MEDS: SOD CHL 0.9%/ KCL 20MEQ 1,000 ML IV SCH ×4 (05:21→22:59)
[2017-09-18 05:46] LABS: Basophils # (auto) 0.1 uL; Basophils % (auto) 0.7 % (0.0-2.0); Eosinophils # (auto) 0.1 uL; Eosinophils % (auto) 0.6 % (0.0-7.0); Hematocrit 42.7 % (41.0-53.0); Hemoglobin 14.4 g/dL (13.5-17.5); Lymphocytes % (auto) 32.3 % (10.0-50.0); Mean Corpuscular Hemoglobin 30.9 pg (28.0-32.0); Mean Corpuscular Hgb Conc. 33.7 g/dL (32.0-36.0); Mean Corpuscular Volume 91.7 fL (80.0-100.0); Monocytes # (auto) 0.8 uL; Monocytes % (auto) 8.1 % (0.0-12.0); Neutrophils # (auto) 5.5 uL; Neutrophils % (auto) 58.3 % (37.0-80.0); Nucleated Red Blood Cells % 0.2 %; Platelet Count (auto) 225 10^3/uL (140-450); Red Blood Cells 4.65 10^6/uL (4.5-5.90); Red Cell Distribution Width 13.5 % (11.8-14.3); White Blood Cell 9.4 10^3/uL (4.4-10.8)
[2017-09-18] MEDS: GABAPENTIN 400 MG CAP PO SCH ×3 (06:03→22:59)
[2017-09-18] MEDS: ALPRAZolam 0.5 MG TAB PO SCH ×3 (06:03→22:59)
[2017-09-18 06:04] LABS: Calcium 8.4 mg/dL (8.5-10.1); Magnesium 2.1 mg/dL (1.6-2.6); Phosphorus 2.3 mg/dL (2.5-4.90); Potassium 3.8 mmol/L (3.5-5.1)
[2017-09-18] MEDS: DESVENLAFAXINE 50 MG PO SCH (10:00)
[2017-09-18] MEDS: ATENOLOL 50 MG PO SCH (10:00)
[2017-09-18] MEDS: PANTOPRAZOLE 40 MG/10 ML VIAL IV SCH (10:15)
[2017-09-18] MEDS: LISINOPRIL 20 MG TAB PO SCH (10:16)
[2017-09-18] MEDS ORDERED: ISOS60TA24 PO (12:41)
[2017-09-18] MEDS ORDERED: PAR20T GT (12:41)
[2017-09-18] MEDS ORDERED: BACL10TA PO (12:41)
[2017-09-18] MEDS ORDERED: HAL5T PO (12:41)
[2017-09-18] MEDS ORDERED: HYDR50TA69 PO (12:41)
[2017-09-18] MEDS ORDERED: CHLO25TA22 PO (12:41)
[2017-09-18] MEDS ORDERED: HYDR50TA15 PO (12:41)
[2017-09-18] MEDS ORDERED: CLON1TAB3 PO (12:41)
[2017-09-18] MEDS ORDERED: INSULIN GLARGINE SC PRN (12:45)
[2017-09-18] MEDS ORDERED: BACLOFEN 10 MG TAB PO PRN (12:45)
[2017-09-18] MEDS ORDERED: hydrOXYzine 25 MG TAB or CAP PO SCH (14:00)
[2017-09-18] MEDS: hydrALAZINE HCL 25 MG TAB PO SCH ×3 (14:00→20:28)
[2017-09-18] MEDS ORDERED: clonazePAM 0.5 MG TAB PO SCH (14:00)
[2017-09-18] MEDS ORDERED: NOVOLOG MIX SC SCH (18:00)
[2017-09-18] MEDS ORDERED: [UNRECOGNIZED DRUG - OTHER] SC SCH (18:00)
[2017-09-18] MEDS: ISOSORBIDE MONONITRATE 60 MG TAB PO SCH (20:29)
[2017-09-18] MEDS ORDERED: HALOPERIDOL 0.5 MG PO SCH (22:00)
[2017-09-18] MEDS: HALOPERIDOL 5 MG TAB PO SCH (22:59)
[2017-09-18] MEDS: GEMFIBROZIL 600 MG TAB PO SCH (22:59)
[2017-09-19] MEDS: MORPHINE SULFATE 10 MG/ML INJ 1ML SDV IV PRN ×4 (01:31→22:24)
[2017-09-19] MEDS: InsuLIN REG 1unit/0.01ml Soln (100units/ml) SC SCH ×6 (01:31→20:22)
[2017-09-19] MEDS: ACCU-CHEK COMFORT CURVE STRIP VI SCH ×6 (01:31→20:22)
[2017-09-19 05:00] VITALS: BP 138/81
[2017-09-19] MEDS: ALPRAZolam 0.5 MG TAB PO SCH ×3 (05:27→22:00)
[2017-09-19] MEDS: GABAPENTIN 400 MG CAP PO SCH ×3 (05:27→22:14)
[2017-09-19] MEDS: hydrALAZINE HCL 25 MG TAB PO SCH ×3 (05:28→22:00)
[2017-09-19] MEDS: SOD CHL 0.9%/ KCL 20MEQ 1,000 ML IV SCH ×3 (05:29→20:42)
[2017-09-19 07:13] LABS: Basophils # (auto) 0 uL; Basophils % (auto) 0.4 % (0.0-2.0); Eosinophils # (auto) 0.2 uL; Eosinophils % (auto) 1.9 % (0.0-7.0); Hematocrit 43.3 % (41.0-53.0); Hemoglobin 14.6 g/dL (13.5-17.5); Lymphocytes # (auto) 2.6 uL; Lymphocytes % (auto) 33.5 % (10.0-50.0); Mean Corpuscular Hgb Conc. 33.7 g/dL (32.0-36.0); Mean Corpuscular Volume 91.9 fL (80.0-100.0); Monocytes # (auto) 0.4 uL; Monocytes % (auto) 5.6 % (0.0-12.0); Neutrophils # (auto) 4.6 uL; Neutrophils % (auto) 58.6 % (37.0-80.0); Platelet Count (auto) 226 10^3/uL (140-450); Red Blood Cells 4.72 10^6/uL (4.5-5.90); Red Cell Distribution Width 13.2 % (11.8-14.3); White Blood Cell 7.9 10^3/uL (4.4-10.8)
[2017-09-19 07:46] LABS: BUN/Creatinine Ratio 14.9; Calcium 8.3 mg/dL (8.5-10.1); Magnesium 2.3 mg/dL (1.6-2.6); Potassium 3.6 mmol/L (3.5-5.1)
[2017-09-19 07:57] VITALS: BP 140/79
[2017-09-19] MEDS: DESVENLAFAXINE 50 MG PO SCH (10:00)
[2017-09-19] MEDS ORDERED: ISOSORBIDE 30 MG PO SCH (10:00)
[2017-09-19] MEDS: PANTOPRAZOLE 40 MG/10 ML VIAL IV SCH (10:19)
[2017-09-19] MEDS: GEMFIBROZIL 600 MG TAB PO SCH ×2 (10:19→22:15)
[2017-09-19] MEDS: LISINOPRIL 20 MG TAB PO SCH (10:20)
[2017-09-19] MEDS: ATENOLOL 50 MG PO SCH (10:20)
[2017-09-19] MEDS: ONDANSETRON HCL 4 MG/2 ML VIAL IV PRN ×2 (10:34→16:43)
[2017-09-19 11:37] VITALS: BP 127/76
[2017-09-19 16:18] VITALS: BP 106/59
[2017-09-19 22:00] VITALS: BP 103/57
[2017-09-19] MEDS: HALOPERIDOL 5 MG TAB PO SCH (22:00)
[2017-09-19] MEDS: ISOSORBIDE MONONITRATE 60 MG TAB PO SCH (22:15)
[2017-09-20] MEDS: ACCU-CHEK COMFORT CURVE STRIP VI SCH ×7 (00:26→23:43)
[2017-09-20] MEDS: InsuLIN REG 1unit/0.01ml Soln (100units/ml) SC SCH ×7 (00:27→23:44)
[2017-09-20] MEDS: SODIUM CHLORIDE 0.9% 1,000 ML IV SCH ×4 (03:41→23:43)
[2017-09-20 05:00] VITALS: BP 127/76
[2017-09-20] MEDS: GABAPENTIN 400 MG CAP PO SCH ×3 (05:50→21:40)
[2017-09-20] MEDS: hydrALAZINE HCL 25 MG TAB PO SCH ×3 (05:50→21:40)
[2017-09-20] MEDS: ALPRAZolam 0.5 MG TAB PO SCH ×3 (05:50→21:39)
[2017-09-20] MEDS: MORPHINE SULFATE 10 MG/ML INJ 1ML SDV IV PRN ×4 (05:56→20:14)
[2017-09-20 07:10] LABS: Calcium 8.6 mg/dL (8.5-10.1); Potassium 4.1 mmol/L (3.5-5.1)
[2017-09-20 07:11] LABS: BUN/Creatinine Ratio 16.4
[2017-09-20 08:00] VITALS: BP 126/75
[2017-09-20] MEDS: PANTOPRAZOLE 40 MG/10 ML VIAL IV SCH (09:58)
[2017-09-20] MEDS: GEMFIBROZIL 600 MG TAB PO SCH ×2 (09:58→21:40)
[2017-09-20] MEDS: LISINOPRIL 20 MG TAB PO SCH (09:59)
[2017-09-20] MEDS: ATENOLOL 50 MG PO SCH (10:00)
[2017-09-20] MEDS: DESVENLAFAXINE 50 MG PO SCH (10:00)
[2017-09-20 11:39] VITALS: BP 152/84
[2017-09-20] MEDS: ONDANSETRON HCL 4 MG/2 ML VIAL IV PRN ×2 (15:40→21:41)
[2017-09-20 16:03] VITALS: BP 165/96
[2017-09-20] MEDS: ISOSORBIDE MONONITRATE 60 MG TAB PO SCH (21:40)
[2017-09-20] MEDS: HALOPERIDOL 5 MG TAB PO SCH (21:40)
[2017-09-20 22:00] VITALS: BP 168/93
[2017-09-21] MEDS ORDERED: MORPHINE SULF INJ 2 MG/ML SYRINGE 1ML ONE ×2 (00:41→06:00)
[2017-09-21] MEDS: MORPHINE SULFATE 10 MG/ML INJ 1ML SDV IV PRN ×2 (00:47→06:05)
[2017-09-21] MEDS: ACCU-CHEK COMFORT CURVE STRIP VI SCH ×3 (03:55→11:32)
[2017-09-21] MEDS: InsuLIN REG 1unit/0.01ml Soln (100units/ml) SC SCH ×3 (03:56→11:32)
[2017-09-21 05:00] VITALS: BP 133/73
[2017-09-21] MEDS: hydrALAZINE HCL 25 MG TAB PO SCH (06:04)
[2017-09-21] MEDS: GABAPENTIN 400 MG CAP PO SCH (06:04)
[2017-09-21] MEDS: ALPRAZolam 0.5 MG TAB PO SCH (06:04)
[2017-09-21] MEDS: SODIUM CHLORIDE 0.9% 1,000 ML IV SCH (06:06)
[2017-09-21 06:40] LABS: BUN/Creatinine Ratio 14.5; Calcium 8.2 mg/dL (8.5-10.1); Potassium 3.5 mmol/L (3.5-5.1)
[2017-09-21 08:42] VITALS: BP 154/87
[2017-09-21] MEDS: DESVENLAFAXINE 50 MG PO SCH (09:48)
[2017-09-21] MEDS: GEMFIBROZIL 600 MG TAB PO SCH (09:50)
[2017-09-21] MEDS: ATENOLOL 50 MG PO SCH (09:50)
[2017-09-21] MEDS: LISINOPRIL 20 MG TAB PO SCH (09:50)
[2017-09-21] MEDS: PANTOPRAZOLE 40 MG/10 ML VIAL IV SCH (09:50)
[2017-09-21 11:00] VITALS: BP 154/87
== END 2017-09-21 12:00 | disposition home or self-care (01) | DRG 420 ==
LOC: ER 11:20 → OVERFLOW 11:21 → TELE-WESTW 09-18 02:00
PROVIDERS: ADMIT Internal Medicine; ATTEND Internal Medicine
DX: E11.10 Type 2 diabetes mellitus with ketoacidosis without coma (principal); N17.0 Acute kidney failure with tubular necrosis; K76.0 Fatty (change of) liver, not elsewhere classified; R65.10 Systemic inflammatory response syndrome (SIRS) of non-infectious origin without acute organ dysfunction; E86.0 Dehydration; K31.84 Gastroparesis; I10 Essential (primary) hypertension; E78.5 Hyperlipidemia, unspecified; E87.6 Hypokalemia; F12.10 Cannabis abuse, uncomplicated; K57.30 Diverticulosis of large intestine without perforation or abscess without bleeding; F41.9 Anxiety disorder, unspecified; F31.9 Bipolar disorder, unspecified; E11.43 Type 2 diabetes mellitus with diabetic autonomic (poly)neuropathy; K21.9 Gastro-esophageal reflux disease without esophagitis; Z79.4 Long term (current) use of insulin; Z79.899 Other long term (current) drug therapy; Z82.49 Family history of ischemic heart disease and other diseases of the circulatory system; Z83.3 Family history of diabetes mellitus; Z91.19 Patient's noncompliance with other medical treatment and regimen; Z88.8 Allergy status to other drugs, medicaments and biological substances
CPT/HCPCS: 36415; 36600; 70450; 71045; 74176; 80048; 80053; 81001; 82010; 82805; 82962; 83036; 83605; 83690; 83735; 83880; 83930; 84100; 84484; 85025; 85610; 85730; 87040; 93005; 96361; 96374; 96375; C9113; G0378; J1815; J2405; J3480